=== PATIENT | male | born 1940 | race Caucasian/White ===

== ENCOUNTER 2017-07-28 07:47 | Day surgery (SDC) | payer MEDICARE, OTHER ==
[~2017-07-28 07:47] MED LIST: Cefuroxime 10 MG/ML SYRINGE EYERT SCH; Lidocaine 1% PF 2 ML SDV INJECT SCH; Pilocarpine 4% Ophth Soln 15 ML Bot EYERT SCH
--- NOTE | 2017-07-28 08:05 | PCM.PREANE ---
Preanesthetic Assessment - Anesthesia/Transfusion/Family Hx Anesthesia History: Prior Anesthesia Without Reaction Family History of Anesthesia Reaction: No Transfusion History: No Prior Transfusion(s) - Review of Systems General: No Symptoms, Other (runny nose) Pulmonary: Shortness of Breath (always because of weight he states) Cardiovascular: No Symptoms Gastrointestinal: No Symptoms Neurological: No Symptoms Other: Reports: None - Physical Assessment NPO Status Date: 07/27/17 NPO Status Time: 23:00 Pulse: 68 O2 Sat by Pulse Oximetry: 94 Respiratory Rate: 20 Blood Pressure: 148/78 Temperature: 97.4 F Height: 5 ft 9 in Weight: 117.934 kg ASA Class: 3 Mental Status: Alert & Oriented x3 Airway Class: Mallampati = 1 Dentition: Reports: Dentures (upper and lower) Thyro-Mental Finger Breadths: 3 Mouth Opening Finger Breadths: 3 ROM/Head Extension: Full Lungs: Clear to Auscultation, Normal Respiratory Effort Cardiovascular: Regular Rate, Regular Rhythm - Allergies Allergies/Adverse Reactions: Allergies Allergy/AdvReac Type Severity Reaction Status Date / Time codeine Allergy Cannot Verified 07/26/17 14:40 Remember mold Allergy Cannot Verified 07/26/17 14:40 Remember - Blood Blood Available: No - Anesthesia Plan Beta [place]: Atenolol Med Last Dose Date: 07/28/17 Med Last Dose Time: 06:30 - Acknowledgements Anesthesia Type Planned: MAC Pt an Appropriate Candidate for the Planned Anesthesia: Yes Alternatives and Risks of Anesthesia Discussed w Pt/Guardian: Yes Pt/Guardian Understands and Agrees with Anesthesia Plan: Yes PreAnesthesia Questionnaire HEENT History: Reports: Cataract, Other (See Below) (glasses) Cardiovascular History: Reports: Bypass, High Cholesterol, Hypertension, SOB on Exertion Respiratory History: Reports: Other (See Below) (sleep apnea) Gastrointestinal History: Reports: GERD Endocrine/Metabolic History: Reports: Obesity/BMI 30+ Oncologic (Cancer) History: Reports: None - Past Surgical History Cardiovascular Surgical History: Reports: Coronary Artery Bypass GI Surgical History: Reports: Appendectomy Musculoskeletal Surgical History: Reports: Other (See Below) (ankle) - SUBSTANCE USE Smoking Status *Q: Former Smoker Tobacco Use Within Last Twelve Months: No Second Hand Smoke Exposure: No Days Per Week of Alcohol Use: 1 (occasionally) Recreational Drug Use History: No - HOME MEDS Home Medications: Home Meds Acetaminophen [Tylenol] 650 mg PO DAILY 07/27/17 [History] Ascorbate Calcium [Vitamin C] 500 mg PO DAILY 07/27/17 [History] Aspirin 81 mg PO DAILY 07/27/17 [History] Atenolol 25 mg PO DAILY 07/27/17 [History] Beta-Carotene [Beta Carotene] 10,000 unit PO DAILY 07/27/17 [History] Copper Gluconate [Copper] 2 mg PO DAILY 07/27/17 [History] Dextran 70/Hypromellose [Artificial Tears] 1 drop EYEBOTH DAILY 07/27/17 [ History] Hydrochlorothiazide 12.5 mg PO DAILY 07/27/17 [History] Lisinopril 2.5 mg PO DAILY 07/27/17 [History] Nitroglycerin [Nitrostat] 0.3 mg SL Q5M PRN 07/27/17 [History] Omeprazole 10 mg PO DAILY 07/27/17 [History] Rosuvastatin [Crestor] 5 mg PO DAILY 07/27/17 [History] Ubidecarenone [COQ-10] 30 mg PO DAILY 07/27/17 [History] Vitamin E 400 mg PO DAILY 07/27/17 [History] Zinc Oxide [Vitamelts Fast Dissolve] 15 mg PO DAILY 07/27/17 [History] - CURRENT (IN HOUSE) MEDS Current Meds: Current Medications Brimonidine Tartrate (Alphagan 0.2% Ophth Soln) 0 ml EYERT ASDIRECTED PATTIE Stop: 07/28/17 18:00 Cefuroxime Sodium (Zinacef) 0 mg EYERT ASDIRECTED PATTIE Stop: 07/28/17 18:00 Lidocaine HCl (Xylocaine-Mpf 1%) 10 ml INJECT ASDIRECTED PATTIE Stop: 07/28/17 18:00 Phenylephrine HCl (Jacob-Synephrine 2.5% Ophth Soln) 0 ml EYERT ASDIRECTED PATTIE Stop: 07/28/17 18:00 Pilocarpine HCl (Pilocar 4% Ophth Soln) 0 ml EYERT ASDIRECTED PATTIE Stop: 07/28/17 18:00 Polymyxin/Trimethoprim Sulfate (Polytrim Ophth Soln) 0 ml EYERT ASDIRECTED PATTIE Stop: 07/28/17 18:00 Tetracaine HCl (Tetracaine 0.5% Steri-Unit Melani) 0 ml EYERT ASDIRECTED PATTIE Stop: 07/28/17 18:00 Tropicamide (Mydriacyl 1% Ophth Soln) 0 ml EYERT ASDIRECTED PATTIE Stop: 07/28/17 18:00
[2017-07-28] MEDS: Polymyxin B/Trimethoprim 10 ML Bottle EYERT SCH ×3 (08:08→09:43)
[2017-07-28] MEDS: Brimonidine 0.2% Ophth Soln 5 ML Bottle EYERT SCH ×3 (08:13→09:43)
[2017-07-28] MEDS: Phenylephrine 2.5% Ophth Soln 2 ML Bot EYERT SCH ×5 (08:18→09:21)
[2017-07-28] MEDS: Tetracaine HCl/PF 0.5% 4 ML Bottle EYERT SCH ×2 (09:11→09:29)
--- NOTE | 2017-07-28 09:46 | PCM48HPAN ---
Post Anesthesia Note - EVALUATION WITHIN 48HRS OF ANESTHETIC Vital Signs in Normal Range: Yes Patient Participated in Evaluation: Yes Respiratory Function Stable: Yes Airway Patent: Yes Cardiovascular Function Stable: Yes Hydration Status Stable: Yes Pain Control Satisfactory: Yes Nausea and Vomiting Control Satisfactory: Yes Mental Status Recovered: Yes
== END 2017-07-28 09:54 | disposition home or self-care (01) ==
LOC: JD.SDS 07:47
PROVIDERS: ATTEND Ophthalmology
DX: H25.813 Combined forms of age-related cataract, bilateral (principal); H35.3131 Nonexudative age-related macular degeneration, bilateral, early dry stage; H35.363 Drusen (degenerative) of macula, bilateral; H16.103 Unspecified superficial keratitis, bilateral; H16.223 Keratoconjunctivitis sicca, not specified as Sjogren's, bilateral; H02.831 Dermatochalasis of right upper eyelid; H02.834 Dermatochalasis of left upper eyelid; E78.00 Pure hypercholesterolemia, unspecified; I10 Essential (primary) hypertension; K21.9 Gastro-esophageal reflux disease without esophagitis; E66.9 Obesity, unspecified; Z87.891 Personal history of nicotine dependence; Z85.820 Personal history of malignant melanoma of skin; Z90.49 Acquired absence of other specified parts of digestive tract; Z79.899 Other long term (current) drug therapy; Z79.82 Long term (current) use of aspirin; Z88.5 Allergy status to narcotic agent; Z91.09 Other allergy status, other than to drugs and biological substances; Z95.1 Presence of aortocoronary bypass graft; Z68.30 Body mass index [BMI] 30.0-30.9, adult
CPT/HCPCS: 66984; C1780; J0697; A9270-GY